=== PATIENT | male | born 1995 | race Caucasian/White ===

== ENCOUNTER 2020-11-13 10:30 | Emergency (ER) | payer OTHER ==
[~2020-11-13] VITALS: Ht 175.3 cm; Wt 77.3 kg
[2020-11-13 10:37] VITALS: BP 139/80
== END 2020-11-13 11:50 | disposition home or self-care (01) ==
LOC: EDSEX 10:32 → ER 10:32
DX: U07.1 COVID-19 (principal); J06.9 Acute upper respiratory infection, unspecified; R07.89 Other chest pain; R05 Cough; R09.81 Nasal congestion
CPT/HCPCS: 87635; 99283; C9803